=== PATIENT | female | born 1990 | race Caucasian/White ===

== ENCOUNTER 2017-04-13 16:46 | Emergency (ER) | payer MEDICAID ==
--- NOTE | 2017-04-13 18:04 | UC ---
Complaint Female HPI - HPI Summary HPI Summary: period is late and is concerned she may be - History Of Current Complaint Chief Complaint: UCGU Stated Complaint: PRIVATE ISSUE Time Seen by Provider: 04/13/17 17:55 Hx Obtained From: Patient Hx Last Menstrual Period: 01/2017 ?: Yes Timing: Constant Severity Initially: Mild Severity Currently: Mild Associated Signs And Symptoms: Positive: Negative - Allergies/Home Medications Allergies/Adverse Reactions: Allergies Allergy/AdvReac Type Severity Reaction Status Date / Time No Known Allergies Allergy Verified 04/13/17 18:08 Home Medications: Home Medications Gabapentin CAP(*) [Neurontin 100 mg CAP(*)] 100 mg PO DAILY 04/13/17 [History Confirmed 04/13/17] PMH/Surg Hx/FS Hx/Imm Hx Previously Healthy: Yes Psychological History: Depression - Surgical History Surgical History: Yes Surgery Procedure, Year, and Place: c sections - Family History Known Family History: Positive: Diabetes - Social History Occupation: Employed Full-time, Student Lives: With Family Alcohol Use: None Substance Use Type: None Substance Use Comment - Amount & Last Used: 1x/wk Smoking Status (MU): Former Smoker - Immunization History Most Recent Influenza Vaccination: 2014 Most Recent Tetanus Shot: 2016 Most Recent Pneumonia Vaccination: never Review of Systems Constitutional: Negative Skin: Negative Eyes: Negative ENT: Negative Respiratory: Negative Cardiovascular: Negative Gastrointestinal: Negative Genitourinary: Negative Motor: Negative Neurovascular: Negative Musculoskeletal: Negative Neurological: Negative Psychological: Negative Is Patient Immunocompromised?: No All Other Systems Reviewed And Are Negative: Yes Physical Exam Triage Information Reviewed: Yes Appearance: Well-Appearing, No Pain Distress, Well-Nourished Vital Signs Reviewed: Yes Eye Exam: Normal Eyes: Positive: Conjunctiva Clear ENT Exam: Normal ENT: Positive: Normal ENT inspection, Hearing grossly normal. Negative: Trismus , Muffled voice, Hoarse voice, Sinus tenderness Dental Exam: Normal Neck exam: Normal Neck: Positive: Supple, Nontender Respiratory Exam: Normal Respiratory: Positive: Chest non-tender, No respiratory distress, No accessory muscle use Cardiovascular Exam: Normal Cardiovascular: Positive: RRR, Pulses Normal, Brisk Capillary Refill Musculoskeletal Exam: Normal Musculoskeletal: Positive: Strength Intact, ROM Intact, No Edema Neurological Exam: Normal Neurological: Positive: Alert, Muscle Tone Normal Psychological Exam: Normal Skin Exam: Normal Diagnostics - Laboratory Diagnostic Studies Completed/Ordered: u preg (+), Trace Leuks Complaint Female Dx - Course Course Of Treatment: Follow with Ob-nurse obgyn, Vits, avoid cigarettes and alchol - Differential Dx/Diagnosis Provider Diagnoses: Discharge - Discharge Plan Condition: Stable Disposition: HOME Patient Education Materials: (ED) Forms: *Gen. Provider Communication Referrals: Armen Rodriguez MD [Primary Care Provider] - As Soon As Possible
[2017-04-13 18:08] VITALS: BP 120/65
== END 2017-04-13 18:30 | disposition home or self-care (01) ==
LOC: UCEAST 16:46
DX: Z32.01 Encounter for pregnancy test, result positive (principal); Z87.891 Personal history of nicotine dependence
CPT/HCPCS: 81003; 81025; 87086; 99211; G0463

== ENCOUNTER 2017-10-07 15:15 | Emergency (ER) | payer OTHER ==
--- NOTE | 2017-10-07 16:33 | ED ---
Lower Extremity - HPI Summary HPI Summary: 27 female 35 weeks presents with bilateral leg pain for past couple days. She states left is worst than right. She states may be muscular thing as pain is intermittent and worst when flexes ankle. sometimes radiates from foot to posterior knee mostly on left. She denies any edema. no chest pain or SOB. no rash. no personal history of DVT but has fam hx. is not a smoker. no recent travel. - History of Current Complaint Chief Complaint: EDExtremityLower Stated Complaint: LEG PAIN Time Seen by Provider: 10/07/17 16:15 Hx Last Menstrual Period: 01/2017 Pain Intensity: 4 - Allergies/Home Medications Allergies/Adverse Reactions: Allergies Allergy/AdvReac Type Severity Reaction Status Date / Time No Known Allergies Allergy Verified 10/07/17 15:21 PMH/Surg Hx/FS Hx/Imm Hx Endocrine/Hematology History: Denies: Hx Diabetes, Hx Thyroid Disease Cardiovascular History: Denies: Hx Hypertension Respiratory History: Denies: Hx Asthma, Hx Chronic Obstructive Pulmonary Disease (COPD) GI History: Denies: Hx Ulcer Psychiatric History: Reports: Hx Depression - currently takes Zoloft daily - Surgical History Surgery Procedure, Year, and Place: c sections Infectious Disease History: No Infectious Disease History: Denies: Hx Hepatitis, Hx Human Immunodeficiency Virus (HIV), History Other Infectious Disease, Traveled Outside the [place] in Last 30 Days - Family History Known Family History: Positive: Diabetes, Blood Disorder - Social History Alcohol Use: None Substance Use Type: Reports: None Substance Use Comment - Amount & Last Used: 1x/wk Smoking Status (MU): Former Smoker Review of Systems Negative: Fever Negative: Chest Pain Negative: Shortness Of Breath Positive: Myalgia - bilateral leg All Other Systems Reviewed And Are Negative: Yes Physical Exam Triage Information Reviewed: Yes Vital Signs On Initial Exam: Initial Vitals Temp Pulse Resp BP Pulse Ox 97.5 F 92 15 118/68 99 10/07/17 15:18 10/07/17 15:18 10/07/17 15:18 10/07/17 15:18 10/07/17 15:18 Vital Signs Reviewed: Yes Appearance: Positive: Well-Appearing Skin: Positive: Warm, Dry Head/Face: Positive: Normal Head/Face Inspection Eyes: Positive: Normal, Conjunctiva Clear ENT: Positive: Pharynx normal Respiratory/Lung Sounds: Positive: Clear to Auscultation, Breath Sounds Present Cardiovascular: Positive: Normal, RRR Musculoskeletal: Positive: Strength/ROM Intact - legs, Other - good pulses, nontender calf. Negative: Kana Sign Left, Kana Sign Right, Edema Left, Edema Right Neurological: Positive: Normal Psychiatric: Positive: Normal Diagnostics - Vital Signs Vital Signs Temp Pulse Resp BP Pulse Ox 10/07/17 15:18 97.5 F 92 15 118/68 99 - Laboratory Lab Statement: Any lab studies that have been ordered have been reviewed, and results considered in the medical decision making process. - Ultrasound No standard instances Ultrasound Interpretation: No Acute Changes Ultrasound Interpretation Completed By: Radiologist Lower Extremity Course/Dx - Course Course Of Treatment: 27 female 35 weeks presents with bilateral leg pain for past couple days. She states left is worst than right. She states may be muscular thing as pain is intermittent and worst when flexes ankle. sometimes radiates from foot to posterior knee mostly on left. She denies any edema. no chest pain or SOB. no rash. no personal history of DVT but has fam hx. is not a smoker. no recent travel. On exam nontender legs. Neurovascular intact. No edema noted. Ultrasound negative. Explained likely muscular. Told to put ice and heat, take tyenlol. Patient understands and agrees with plan. - Diagnoses Differential Diagnosis/HQI/PQRI: Positive: DVT, Sprain, Strain Provider Diagnoses: Leg pain Discharge - Sign-Out/Discharge Documenting (check all that apply): Patient Departure - Discharge Plan Condition: Good Disposition: HOME Patient Education Materials: Leg Pain (ED) Referrals: Armen Rodriguez MD [Primary Care Provider] - Additional Instructions: Take Tylenol every 6 hours as needed for pain Apply ice/heat Follow up with ob as needed Return to ED if develop any new or worsening symptoms - Billing Disposition and Condition Condition: GOOD Disposition: Home
--- NOTE | 2017-10-07 16:40 | RAD ---
INDICATION: Pain and swelling. COMPARISON: None TECHNIQUE: Duplex interrogation of the both lower extremities was performed. FINDINGS: Deep veins: The common femoral, great saphenous, profunda femoris, proximal, mid, and distal deep femoral, popliteal, posterior tibial, and peroneal veins are patent. There is normal compressibility, augmentation, and phasic flow. Superficial veins: There are no findings of superficial thrombophlebitis. Popliteal fossa:There is no evidence of a popliteal cyst. Soft tissues:There are no soft tissue abnormalities. IMPRESSION: NEGATIVE BILATERAL EXAMINATION. NO EVIDENCE OF DEEP VENOUS THROMBOSIS
[2017-10-07 17:01] VITALS: BP 113/70
== END 2017-10-07 17:00 | disposition home or self-care (01) ==
LOC: ED 15:15
DX: O26.893 Other specified pregnancy related conditions, third trimester (principal); M79.605 Pain in left leg; M79.604 Pain in right leg; Z3A.35 35 weeks gestation of pregnancy; F32.9 Major depressive disorder, single episode, unspecified; Z87.891 Personal history of nicotine dependence
CPT/HCPCS: 93970; 99282

== ENCOUNTER 2017-11-07 06:01 | Inpatient (IN) | payer OTHER ==
[~2017-11-07 06:01] MED LIST: Buffered Lidocaine 0.9% SYRIN* 5 ML/SYR SYRINGE INTRADERM ONE
[2017-11-07] MEDS ORDERED: Sodium Citrate/Citric Acid* 15 ML UDC PO ONE (06:30)
--- NOTE | 2017-11-07 06:39 | HP ---
General Information - Reason for Visit at term, prior section X 3, gestational diabetes, desires sterilization. - General Information Maternal Age: 27 Grav: 5 Para: 3 SAB: 1 IEA: 0 Estimated Due Date: 11/11/17 Determined By: LMP Gestational Age in Weeks/Days: 39 3/7 Maternal Blood Type and Rh: A Positive - Results this Serology/RPR Result: Non-Reactive Rubella Result: Immune HBsAg Result: Negative HIV Result: Negative GBS Culture Result: Negative Past Medical History Delivery History: Hx C/Section, See Records - Gestational diabetes A1 Pertinent Past Medical History: See Records - Depression/Anxiety Pertinent Past Surgical History: See Records Pertinent Family History: See Records - Antepartal Records Antepartal Records: Reviewed, Complicated by: - Prior X3, Gestational diabetes A1 Review of Systems Constitutional: Comfortable CV Complaint: No Respiratory: Shortness of Breath: No Gastrointestinal: No Nausea/Vomiting, Normal Bowel Movement Genitourinary: No Dysuria, No Bleeding, No Leaking Fluid Musculoskeletal: No Complaint, No Epigastric Pain Neurological: No Headache, No Visual Changes Movement: Normal Exam Allergies/Adverse Reactions: Allergies No Known Allergies Allergy (Verified 10/07/17 15:21) Temp 98.7 BP 120/82 P 72 RR 20 - Measurements Height: 5 ft 4 in Weight: 185 lb Weight in lbs: [phone] Body Mass Index (BMI): 31.7 Pre- Weight: 165 lb Weight Gained This : 20 lbs and 0 ozs - Exam Breast: Breast Exam Deferred CVA: No CVA Tenderness Extremities: No Edema Heart: Normal Rhythm/Heart Sounds HEENT: No Significant Findings Lungs: Clear Bilaterally Rectal: Rectal Exam Deferred Reflexes: DTR 2+ Thyroid: No Thyromegaly - Abdominal Exam Abdomen Exam: Non-Tender, Fundal Height Consistent with Dates - Ultrasound/Biophysical Profile Ultrasound Status: Not Done Targeted Exam Findings See L&D Outpatient Visit Provider Note for Findings: N/A Cervical Exam: Closed Presenting Part: Vertex Membrane Status: Intact Bleeding/Discharge: None EFM Findings - External Monitor Findings Baseline Heart Rate: 140 External Monitor Findings: Accelerations Present Contractions: None Assessment/Plan - Obstetrical Risk Factors Obstetrical Risk Factors: Gestational Diabetes Risk Factors Comment: Prior Section X 3 - Plan Plan: IV Hydration, Antibiotic Prophylaxis, C/S Delivery - Date/Time of Admission Date of Admission: 11/07/17 Time of Admission: 07:00
[2017-11-07] MEDS ORDERED: Phenylephrine INJ* 10 MG/ML 1 ML VIAL (10 MG) ONE (06:54)
[2017-11-07] MEDS ORDERED: Bupivacaine 0.5% SDV PF* 30ML VIAL ONE (06:55)
[2017-11-07] MEDS ORDERED: Sterile Water for Inj* 20 ML ONE (06:55)
[2017-11-07] MEDS ORDERED: Morphine PF AMP (0.5MG/ML)* 5 MG/10 ML AMP ONE (06:58)
[2017-11-07] MEDS ORDERED: ceFOXitin 2 GM IVPREMIX* 2 GM/50 ML BAG IVPB ONE (07:00)
[2017-11-07] MEDS ORDERED: fentaNYL* 50 MCG/ML 2 ML VIAL (100 MCG VIAL) ONE (07:01)
[2017-11-07] MEDS ORDERED: Sodium Citrate/Citric Acid* 15 ML UDC ONE (07:18)
[2017-11-07] MEDS ORDERED: ceFOXitin 2 GM IVPREMIX* 2 GM/50 ML BAG ONE (07:26)
[2017-11-07] MEDS ORDERED: Ondansetron INJ* 2 MG/ML VIAL ONE (07:58)
[2017-11-07] MEDS ORDERED: Oxytocin in LR* 20 UNITS/1,000 ML BAG IVPB ONE (08:13)
[2017-11-07] MEDS ORDERED: Glycopyrrolate IV* 0.2 MG/ML 1 ML VIAL ONE (08:23)
[2017-11-07] MEDS ORDERED: Naloxone* 0.4 MG/ML 1 ML VIAL IV PRN (08:51)
[2017-11-07] MEDS ORDERED: Acetaminophen TAB* 325 MG PO PRN ×2 (08:51→09:30)
[2017-11-07] MEDS ORDERED: Metoclopramide IV* 5 MG/ML 2 ML VIAL IV PRN (08:51)
[2017-11-07] MEDS ORDERED: oxyCODONE/Acetamin 5/325 MG* TAB PO PRN ×2 (08:51→09:30)
[2017-11-07] MEDS ORDERED: Ketorolac INJ* 30 MG/ML 1 ML VIAL IV PRN (08:51)
[2017-11-07] MEDS ORDERED: Ondansetron INJ* 2 MG/ML VIAL IV PRN (08:51)
[2017-11-07] MEDS ORDERED: oxyCODONE TAB* 5 MG TAB PO PRN (08:51)
[2017-11-07] MEDS ORDERED: DiMENhydriNATE IV* 50 MG/ML VIAL IV PUSH PRN (08:51)
[2017-11-07] MEDS ORDERED: Witch Hazel PAD* JAR TOPICAL PRN (09:30)
[2017-11-07] MEDS ORDERED: Glycerin ADULT SUPP PR PRN (09:30)
[2017-11-07] MEDS ORDERED: Dibucaine 1% 28.35 GM TUBE PR PRN (09:30)
[2017-11-07] MEDS ORDERED: Zolpidem TAB* 5 MG PO PRN (09:30)
[2017-11-07] MEDS: Simethicone TAB* 80 MG TAB.CHEW PO SCH ×3 (18:00→21:20)
[2017-11-07] MEDS: Ibuprofen TAB* 600 MG PO PRN (18:00)
[2017-11-07] MEDS: Docusate CAP* 100 MG PO SCH ×2 (18:04→21:20)
[2017-11-08] MEDS: Ibuprofen TAB* 600 MG PO PRN ×3 (00:58→15:15)
--- NOTE | 2017-11-08 03:37 | OP ---
DATE OF OPERATION: 11/07/17 - ROOM #115 DATE OF : 89 SURGEON: Armen Rodriguez MD HAT STEAMER: Dr. Robles ANESTHESIA: Spinal. PRE-OP DIAGNOSIS: at 39 plus weeks; prior section x3; desires sterilization; and gestational diabetes diet controlled. POST-OP DIAGNOSIS: at 39 plus weeks; prior section x3; desires sterilization; and gestational diabetes diet controlled. OPERATIVE PROCEDURE: Repeat low-transverse section and bilateral fimbriectomy tubal ligation. ESTIMATED BLOOD LOSS: 600 cc. SPECIMENS SENT TO PATHOLOGY: Cord blood and bilateral tubal fimbriae. FLUIDS: She received 1500 cc of IV crystalloid fluids. URINE OUTPUT: Clear. FINDINGS: Delivery of a male infant weighing 7 pounds 15 ounces with Apgars of 9 and 9. The placenta was grossly intact and a 3-vessel cord noted. The uterus , adnexa, bowel, and bladder were within normal limits. There were no complications. DESCRIPTION OF PROCEDURE: The patient was taken to the operating room, where she was identified. She was placed on the operating table, where a spinal anesthetic was obtained without difficulty. She was then placed in the supine position with a leftward tilt, prepped and draped in the normal sterile fashion. A Pfannenstiel skin incision was then made with a knife and carried through to the underlying layer of fascia. The fascia was then nicked in the midline and extended laterally with curved Walker scissors. The fascia was then grasped superiorly and inferiorly with Emilie clamps, dissected off sharply from the rectus muscle. The rectus muscle was in the midline bluntly. The peritoneum was identified, grasped with pickups and entered sharply with Metzenbaum scissors. The peritoneum was then extended superiorly and inferiorly with a Metzenbaum scissors. A bladder blade was inserted into the patient's abdomen and a bladder flap was created using Metzenbaum scissors over which the bladder blade was then reinserted. A low transverse uterine incision was made with a knife, extended laterally with bandage scissors. The amniotic sac was ruptured and the fluid was noted to be clear. The 's head was then grasped and delivered atraumatically. The rest of the 's body was then delivered. The cord was clamped and cut and the was handed off to the awaiting water meter reader. Cord bloods were obtained. The placenta was removed manually. The uterus was then exteriorized and cleared of all clots and debris using moist laparotomy sponges. The uterine incision was then closed using 0 Polysorb suture in a running locked fashion with a second imbricating layer of 0 Polysorb suture with good hemostasis noted. The abdomen was then irrigated with normal saline and the irrigation fluid was suctioned. The uterine incision was noted to be hemostatic. All sponges were removed from the patient's abdomen as well as instruments. Prior to inserting the uterus into the patient's abdomen, a bilateral fimbriectomy was performed in the usual fashion and portions of the right and left fimbriae were sent to pathology. Again, the uterus was placed into the patient's abdomen and the incision was noted to be hemostatic. All the sponges were removed from the patient's abdomen and instruments. At this point, the peritoneum was then closed using 3- 0 Polysorb suture in a running fashion. The fascia was closed using 0 Polysorb suture in a running fashion, and the skin was closed with a 4-0 Monocryl in a subcuticular stitch. The patient tolerated the procedure well. Sponge, lap, and needle counts were correct x2. She was then transferred to the recovery room area in stable condition. [id number]/[facility] #: [id number]
[2017-11-08] MEDS: oxyCODONE/Acetamin 5/325 MG* TAB PO PRN ×3 (06:56→17:07)
[2017-11-08 06:58] LABS: ABS Basophils 0 10^3/ul (0-0.2); ABS Eosinophils 0.2 10^3/ul (0-0.6); ABS Lymphocytes 1.8 10^3/ul (1.0-4.8); ABS Monocytes 0.9 10^3/ul (0-0.8); ABS Neutrophils 7.1 10^3/ul (1.5-7.7); ABS Nucleated RBC 0 10^3/ul; Eosinophil % 2.1 % (0-6); Hematocrit 31 % (35-47); Hemoglobin 10.7 g/dl (12.0-16.0); Lymphocyte % 17.8 % (25-47); Mean Corpuscular HGB Conc 34 g/dl (31-36); Mean Corpuscular Hemoglobin 30 pg (27-31); Mean Corpuscular Volume 86 fL (80-97); Mean Platelet Volume 8.9 um3 (7.4-10.4); Nucleated Red Blood Cells % 0; Platelet Count 196 10^3/ul (150-450); Red Blood Count 3.64 10^6/ul (4.00-5.40); Red Cell Distribution Width 14 % (10.5-15)
[2017-11-08] MEDS: Docusate CAP* 100 MG PO SCH ×3 (08:12→21:09)
[2017-11-08] MEDS: Simethicone TAB* 80 MG TAB.CHEW PO SCH ×3 (08:12→19:20)
[2017-11-08] MEDS ORDERED: Ferrous Gluconate TAB* 324 MG TAB PO SCH (09:00)
[2017-11-09] MEDS: Simethicone TAB* 80 MG TAB.CHEW PO SCH ×4 (00:36→19:31)
[2017-11-09] MEDS: Ibuprofen TAB* 600 MG PO PRN ×4 (00:36→19:31)
[2017-11-09] MEDS: Docusate CAP* 100 MG PO SCH ×3 (07:59→19:31)
[2017-11-09] MEDS: oxyCODONE/Acetamin 5/325 MG* TAB PO PRN ×2 (12:36→19:32)
[2017-11-10] MEDS: Ibuprofen TAB* 600 MG PO PRN ×3 (01:36→13:58)
[2017-11-10 08:22] VITALS: BP 121/65
[2017-11-10] MEDS: Simethicone TAB* 80 MG TAB.CHEW PO SCH ×2 (08:43→12:23)
[2017-11-10] MEDS: Docusate CAP* 100 MG PO SCH ×2 (08:43→13:58)
[2017-11-10 13:30] LABS: Urine Appearance Clear; Urine Blood 2+ (Negative); Urine Color Yellow; Urine Ketones Negative (Negative); Urine Protein Negative (Negative); Urine Red Blood Cell 2+(6-10/hpf) (Absent); Urine Specific Gravity 1.015 (1.010-1.030); Urine Urobilinogen Negative (Negative); Urine White Blood Cell Trace(0-5/hpf) (Absent)
== END 2017-11-10 14:17 | disposition home or self-care (01) | DRG 540 ==
LOC: MCHOB 06:01 → EDSTATUS 07:45
PROVIDERS: ADMIT Obstetrics & Gynecology; ATTEND Obstetrics & Gynecology
PROC: 10D00Z1 Extraction of Products of Conception, Low, Open Approach (ICD-10-PCS; 2017-11-07)
PROC: 4A1HX4Z Monitoring of Products of Conception, Cardiac Electrical Activity, External Approach (ICD-10-PCS; 2017-11-07)
PROC: 0UB70ZZ Excision of Bilateral Fallopian Tubes, Open Approach (ICD-10-PCS; principal; 2017-11-07 07:45)
DX: O34.211 Maternal care for low transverse scar from previous cesarean delivery (principal); O24.420 Gestational diabetes mellitus in childbirth, diet controlled; O90.81 Anemia of the puerperium; Z3A.39 39 weeks gestation of pregnancy; Z37.0 Single live birth; Z30.2 Encounter for sterilization
CPT/HCPCS: 36415; 81003; 81015; 85025; 87086; 88302; A9270-GY; J0694; J1240; J1885; J2405; J3010

== ENCOUNTER 2019-04-08 10:18 | Emergency (ER) | payer OTHER ==
[2019-04-08 11:04] LABS: ABS Basophils 0.1 10^3/ul (0-0.2); ABS Eosinophils 0.2 10^3/ul (0-0.6); ABS Lymphocytes 2.2 10^3/ul (1.0-4.8); ABS Monocytes 0.8 10^3/ul (0-0.8); ABS Neutrophils 5.5 10^3/ul (1.5-7.7); Eosinophil % 1.9 %; Hematocrit 41 % (35-47); Hemoglobin 14.1 g/dL (12.0-16.0); Lymphocyte % 25.5 %; Mean Corpuscular HGB Conc 34 g/dL (31-36); Mean Corpuscular Hemoglobin 31 pg (27-31); Mean Corpuscular Volume 89 fL (80-97); Mean Platelet Volume 7.6 fL (7.4-10.4); Nucleated Red Blood Cells % 0.1; Platelet Count 366 10^3/uL (150-450); Red Blood Count 4.61 10^6 /uL (3.70-4.87); Red Cell Distribution Width 13 % (10-15); White Blood Count 8.7 10^3/uL (3.5-10.8)
[2019-04-08 11:10] LABS: Urine Appearance Clear; Urine Bilirubin Negative (Negative); Urine Blood Negative (Negative); Urine Color Yellow; Urine Glucose Negative (Negative); Urine Ketones Negative (Negative); Urine Nitrite Negative (Negative); Urine Protein Negative (Negative); Urine Specific Gravity 1.005 (1.010-1.030); Urine Urobilinogen Negative (Negative)
[2019-04-08 11:20] LABS: ALT 17 U/L (7-52); AST 12 U/L (13-39); Albumin 4.3 g/dL (3.2-5.2); Albumin/Globulin Ratio 1.5 (1-3); Alkaline Phosphatase 68 U/L (34-104); Anion Gap 4 mmol/L (2-11); BUN/Creatinine Ratio 12.7 (8-20); Blood Urea Nitrogen 9 mg/dL (6-24); CO2 Carbon Dioxide 27 mmol/L (22-32); Calcium 9.2 mg/dL (8.6-10.3); Chloride 107 mmol/L (101-111); EGFR African American 118.6 (>60); Globulin 2.9 g/dL (2-4); Glucose 79 mg/dL (70-100); Potassium 3.7 mmol/L (3.5-5.0); Sodium 138 mmol/L (135-145); Total Protein 7.2 g/dL (6.4-8.9)
[2019-04-08 11:27] LABS: HCG Pregnancy < 0.60 mIU/mL
[2019-04-08 11:47] LABS: Acetaminophen < 15 mcg/mL; Alcohol < 10 mg/dL (<10); Salicylate < 2.50 mg/dL (<30)
[2019-04-08 11:49] LABS: Urine Benzodiazepine Screen Presumptive Positive (None Detect); Urine Opiates Screen None Detected (None Detect)
[2019-04-08 11:49] LABS: TSH (Thyroid Stimulating Horm) 1.39 mcIU/mL (0.34-5.60)
--- NOTE | 2019-04-08 17:18 | ED ---
Psychiatric Complaint - HPI Summary HPI Summary: This patient is a 29-year-old female presenting to the ED with feelings of suicidal ideation. She also endorses drug use as soon as last evening. She endorses MDMA. Denies any symptoms. States she feels "numb." She states she feels this way when she has her suicidal thoughts. Although her suicidal thoughts have been present for several years, worse in the last 6 months, she states she has been wanting to act on these thoughts with several weeks. She denies any extra recent stressors. She is unwilling to talk much with provider. States she is supposed to be taking Zoloft, but hasn't. States she wants to hurt herself now, appears angry at triage. Patient states she wanted to go to the PCP office for a physical she could go to rehabilitation for her drug use. They told her come to [facility] as she had suicidal thoughts. - History Of Current Complaint Chief Complaint: EDPsychosocial Time Seen by Provider: 04/08/19 10:26 Hx Obtained From: Patient Hx Last Menstrual Period: 01/2017 ?: No Onset/Duration: Sudden Onset Timing: Constant Severity Initially: Moderate Severity Currently: Moderate Character: Depressed, Anxious, Angry, Frustrated Aggravating Factor(s): Recent Stress, Medication Non-compliance, Alcohol Use, Drug Use Alleviating Factor(s): Nothing Associated Signs And Symptoms: Positive: Hostile, Confused, Social Withdrawal, Social Isolation Has Suicidal: Reports: Thoughts, With A Plan - various Ingestion History: Type/Name Of Drug - MDMA, Amount Ingested - unknown, Approximate Time Of Ingestion - bath mixer hours - Risk Factor(s) Completed Suicide Risk Factors: Negative - Allergies/Home Medications Allergies/Adverse Reactions: Allergies Allergy/AdvReac Type Severity Reaction Status Date / Time No Known Allergies Allergy Verified 04/08/19 10:24 PMH/Surg Hx/FS Hx/Imm Hx Previously Healthy: Yes Endocrine/Hematology History: Denies: Hx Diabetes, Hx Thyroid Disease Cardiovascular History: Denies: Hx Hypertension Respiratory History: Denies: Hx Asthma, Hx Chronic Obstructive Pulmonary Disease (COPD) GI History: Denies: Hx Ulcer Psychiatric History: Reports: Hx Anxiety, Hx Eating Disorder - bulemia, Hx Depression, Hx Suicide Attempt - taken pills Denies: Hx Post Traumatic Stress Disorder, Hx Schizophrenia - Surgical History Surgery Procedure, Year, and Place: c sections - Immunization History Hx Pertussis Vaccination: No Immunizations Up to Date: Yes Infectious Disease History: No Infectious Disease History: Denies: Hx Hepatitis, Hx Human Immunodeficiency Virus (HIV), History Other Infectious Disease, Traveled Outside the [place] in Last 30 Days - Family History Known Family History: Positive: Diabetes, Blood Disorder - Social History Occupation: Unemployed Lives: Alone Alcohol Use: Occasionally Alcohol Amount: bottle and a half of wine Hx Substance Use: No Substance Use Type: Reports: Other Substance Use Comment - Amount & Last Used: once a week Hx Tobacco Use: Yes Smoking Status (MU): Light Every Day Tobacco Smoker Review of Systems Negative: Fever, Chills, Fatigue, Skin Diaphoresis Negative: Palpitations, Chest Pain Negative: Shortness Of Breath, Cough Genitourinary: Negative Positive: no symptoms reported, see HPI Negative: Arthralgia, Myalgia Positive: Anxious, Depressed All Other Systems Reviewed And Are Negative: Yes Physical Exam Triage Information Reviewed: Yes Vital Signs On Initial Exam: Initial Vitals Temp Pulse Resp BP Pulse Ox 98.7 F 100 19 136/82 100 04/08/19 10:19 04/08/19 10:19 04/08/19 10:19 04/08/19 10:19 04/08/19 10:19 Vital Signs Reviewed: Yes Appearance: Positive: Well-Appearing, Well-Nourished Skin: Positive: Warm, Skin Color Reflects Adequate Perfusion Head/Face: Positive: Normal Head/Face Inspection Eyes: Positive: EOMI, SIDRA, Conjunctiva Clear Neck: Positive: Supple, No Lymphadenopathy Respiratory/Lung Sounds: Positive: Clear to Auscultation, Breath Sounds Present Cardiovascular: Positive: RRR, Pulses are Symmetrical in both Upper and Lower Extremities Musculoskeletal: Positive: Normal, Strength/ROM Intact Neurological: Positive: Speech Normal Psychiatric: Positive: Normal, Affect/Mood Appropriate AVPU Assessment: Alert Procedures - Sedation Patient Received Moderate/Deep Sedation with Procedure: No Diagnostics - Vital Signs Vital Signs Temp Pulse Resp BP Pulse Ox 04/08/19 10:19 98.7 F 100 19 136/82 100 - Laboratory Lab Results: Lab Results 04/08/19 04/08/19 04/08/19 Range/Units 10:55 10:55 10:56 WBC 8.7 (3.5-10.8) 10^3/uL RBC 4.61 (3.70-4.87) 10^6 /uL Hgb 14.1 (12.0-16.0) g/dL Hct 41 (35-47) % MCV 89 (80-97) fL MCH 31 (27-31) pg MCHC 34 (31-36) g/dL RDW 13 (10-15) % Plt Count 366 (150-450) 10^3/uL MPV 7.6 (7.4-10.4) fL Neut % (Auto) 62.6 % Lymph % (Auto) 25.5 % [place] % (Auto) 9.3 % Eos % (Auto) 1.9 % Baso % (Auto) 0.7 % Absolute Neuts (auto) 5.5 (1.5-7.7) 10^3/ul Absolute Lymphs (auto) 2.2 (1.0-4.8) 10^3/ul Absolute Monos (auto) 0.8 (0-0.8) 10^3/ul Absolute Eos (auto) 0.2 (0-0.6) 10^3/ul Absolute Basos (auto) 0.1 (0-0.2) 10^3/ul Absolute Nucleated RBC 0.0 10^3/ul Nucleated RBC % 0.1 Sodium 138 (135-145) mmol/L Potassium 3.7 (3.5-5.0) mmol/L Chloride 107 (101-111) mmol/L Carbon Dioxide 27 (22-32) mmol/L Anion Gap 4 (2-11) mmol/L BUN 9 (6-24) mg/dL Creatinine 0.71 (0.51-0.95) mg/dL Est GFR ( Amer) 118.6 (>60) Est GFR (Non-Af Amer) 98.0 (>60) BUN/Creatinine Ratio 12.7 (8-20) Glucose 79 (70-100) mg/dL Calcium 9.2 (8.6-10.3) mg/dL Total Bilirubin 0.40 (0.2-1.0) mg/dL AST 12 L (13-39) U/L ALT 17 (7-52) U/L Alkaline Phosphatase 68 (34-104) U/L Total Protein 7.2 (6.4-8.9) g/dL Albumin 4.3 (3.2-5.2) g/dL Globulin 2.9 (2-4) g/dL Albumin/Globulin Ratio 1.5 (1-3) TSH 1.39 (0.34-5.60) mcIU/mL Beta HCG, Quant < 0.60 mIU/mL Urine Color Yellow Urine Appearance Clear Urine pH 7.0 (5-9) Ur Specific [place] 1.005 L (1.010-1.030) Urine Protein Negative (Negative) Urine Ketones Negative (Negative) Urine Blood Negative (Negative) Urine Nitrate Negative (Negative) Urine Bilirubin Negative (Negative) Urine Urobilinogen Negative (Negative) Ur Leukocyte Esterase Negative (Negative) Urine Glucose Negative (Negative) Salicylates < 2.50 (<30) mg/dL Urine Opiates Screen (None Detect) Acetaminophen < 15 mcg/mL Ur Barbiturates Screen (None Detect) Ur Phencyclidine Scrn (None Detect) Ur Amphetamines Screen (None Detect) U Benzodiazepines Scrn (None Detect) Urine Cocaine Screen (None Detect) U Cannabinoids Screen (None Detect) Serum Alcohol < 10 (<10) mg/dL 04/08/19 Range/Units 10:56 WBC (3.5-10.8) 10^3/uL RBC (3.70-4.87) 10^6 /uL Hgb (12.0-16.0) g/dL Hct (35-47) % MCV (80-97) fL MCH (27-31) pg MCHC (31-36) g/dL RDW (10-15) % Plt Count (150-450) 10^3/uL MPV (7.4-10.4) fL Neut % (Auto) % Lymph % (Auto) % [place] % (Auto) % Eos % (Auto) % Baso % (Auto) % Absolute Neuts (auto) (1.5-7.7) 10^3/ul Absolute Lymphs (auto) (1.0-4.8) 10^3/ul Absolute Monos (auto) (0-0.8) 10^3/ul Absolute Eos (auto) (0-0.6) 10^3/ul Absolute Basos (auto) (0-0.2) 10^3/ul Absolute Nucleated RBC 10^3/ul Nucleated RBC % Sodium (135-145) mmol/L Potassium (3.5-5.0) mmol/L Chloride (101-111) mmol/L Carbon Dioxide (22-32) mmol/L Anion Gap (2-11) mmol/L BUN (6-24) mg/dL Creatinine (0.51-0.95) mg/dL Est GFR ( Amer) (>60) Est GFR (Non-Af Amer) (>60) BUN/Creatinine Ratio (8-20) Glucose (70-100) mg/dL Calcium (8.6-10.3) mg/dL Total Bilirubin (0.2-1.0) mg/dL AST (13-39) U/L ALT (7-52) U/L Alkaline Phosphatase (34-104) U/L Total Protein (6.4-8.9) g/dL Albumin (3.2-5.2) g/dL Globulin (2-4) g/dL Albumin/Globulin Ratio (1-3) TSH (0.34-5.60) mcIU/mL Beta HCG, Quant mIU/mL Urine Color Urine Appearance Urine pH (5-9) Ur Specific [place] (1.010-1.030) Urine Protein (Negative) Urine Ketones (Negative) Urine Blood (Negative) Urine Nitrate (Negative) Urine Bilirubin (Negative) Urine Urobilinogen (Negative) Ur Leukocyte Esterase (Negative) Urine Glucose (Negative) Salicylates (<30) mg/dL Urine Opiates Screen None detected (None Detect) Acetaminophen mcg/mL Ur Barbiturates Screen None detected (None Detect) Ur Phencyclidine Scrn None detected (None Detect) Ur Amphetamines Screen None detected (None Detect) U Benzodiazepines Scrn Presumptive positive A (None Detect) Urine Cocaine Screen None detected (None Detect) U Cannabinoids Screen Presumptive positive A (None Detect) Serum Alcohol (<10) mg/dL Result Diagrams: 04/08/19 10:55 04/08/19 10:55 Lab Statement: Any lab studies that have been ordered have been reviewed, and results considered in the medical decision making process. Course/Dx - Course Course Of Treatment: Patient appears well. Nontoxic appearing. Afebrile. Other vital signs stable. No abdominal tenderness throughout. Lungs CTA, RRR. EOMI/PERRLA. Patient does appear somewhat fatigued and is unwilling to speak with provider at length. Patient is cleared for mental health. Signed out to Benjamin Aguirre PA-C pending disposition. - Differential Dx/Clinical Impression Differential Diagnosis/HQI/PQRI: Positive: Acute Psychosis, Anxiety, Suicide Attempt, Suicidal Ideation, Suicidal Gesture Provider Diagnosis: Suicidal ideation Discharge ED - Sign-Out/Discharge Documenting (check all that apply): Sign-Out Patient Signing out patient TO: Benjamin Aguirre - Discharge Plan Condition: Fair Referrals: No Primary Care Phys,NOPCP [Primary Care Provider] - - Billing Disposition and Condition Condition: FAIR - Attestation Statements Provider Attestation: I was available for consult. This patient was seen by the [facility]. The patient was not presented to, seen by, or examined by me. -Jordon
[2019-04-08] MEDS ORDERED: Nicotine PATCH 21 MG/24 HR* PATCH TRANSDERM ONE (19:47)
[2019-04-08] MEDS ORDERED: hydrOXYzine HCL TAB* 25 MG PO ONE (19:47)
[2019-04-08] MEDS ORDERED: diPHENhydraMINE PO* 50 MG PO ONE (22:50)
--- NOTE | 2019-04-09 06:45 | ED ---
Progress - Progress Note Progress Note: The patient is a sign-out from ALEJANDRA Box, to Dr. Benjamin Fregoso MD, at change of shift at 0230 on 04/09/2019, pending [facility] hold. Patient awaiting transfer to [facility] accepted by Dr. Laird. The patient is a sign-out from Dr. Benjamin Fregoso MD, to Dr. Raúl Ortiz DO, at change of shift at 0700 on 04/09/2019, pending MHU hold. Course/Dx - Course Course Of Treatment: The patient is a sign-out from ALEJANDRA Box, to Dr. Benjamin Fregoso MD, at change of shift at 0230 on 04/09/2019, pending MHU hold. Patient awaiting transfer to [facility] accepted by Dr. Laird. The patient is a sign-out from Dr. Benjamin Fregoso MD, to Dr. Raúl Ortiz DO, at change of shift at 0700 on 04/09/2019, pending MHU hold. - Diagnoses Provider Diagnoses: Suicidal ideation - Provider Notifications Discussed Care Of Patient With: S[facility] - psych [facility] Instructed by Provider To: Other - Dr. Laird accepts patient for transfer to [facility] for psych care. Discharge ED - Sign-Out/Discharge Documenting (check all that apply): Sign-Out Patient, Receiving Sign-Out Signing out patient TO: Charles Ortiz - Patient is a sign-out to Dr. Raúl Ortiz DO, at 0700 on 04/09/2019, pending MH transfer. Receiving patient FROM: Benjamin Aguirre - Patient is a sign-out from ALEJANDRA Box , at 0230 on 04/09/2019, pending MH transfer. - Discharge Plan Condition: Fair Disposition: PSYCHIATRIC FACILITY-OTHER Referrals: No Primary Care Phys,NOPCP [Primary Care Provider] - - Attestation Statements Document Initiated by Scribe: Yes Documenting Scribe: Gladys Parsons Provider For Whom Scribe is Documenting (Include Credential): Dr. Benjamin Fregoso MD Scribe Attestation: Gladys Silverman, georgetteibed for Dr. Benjamin Fregoso MD on 04/09/19 at 0646. Status of Scribe Document: Ready Procedures - Sedation Patient Received Moderate/Deep Sedation with Procedure: No
[2019-04-09] MEDS ORDERED: LORazepam TAB(*) 1 MG PO ONE (06:54)
[2019-04-09 08:31] VITALS: BP 114/70
--- NOTE | 2019-04-09 11:56 | ED ---
Progress - Progress Note Progress Note: Patient is signed out from Dr. Fregoso upon shift change 04/09/2019 07:00 pending transfer disposition. Course/Dx - Course Course Of Treatment: Patient is signed out from Dr. Fregoso upon shift change 07:00 pending transfer disposition. Patient transferred to [facility] at 08:42 per psychiatric sorter pricer. - Diagnoses Provider Diagnoses: Mood disorder - Provider Notifications Instructed by Provider To: Other - Dr. Laird accepts patient for transfer to [facility] for psych care. Discharge ED - Sign-Out/Discharge Documenting (check all that apply): Patient Departure - Discharge Plan Condition: Fair Disposition: PSYCHIATRIC FACILITY-OTHER Referrals: No Primary Care Phys,NOPCP [Primary Care Provider] - - Billing Disposition and Condition Condition: FAIR Disposition: Psychiatric Facility Other - Attestation Statements Document Initiated by Scribe: Yes Documenting Scribe: Elana Newell Provider For Whom Scribe is Documenting (Include Credential): Raúl Ortiz DO Scribe Attestation: Elana Silverman scribed for Raúl Ortiz DO on 04/09/19 at 1208. Scribe Documentation Reviewed: Yes Provider Attestation: The documentation as recorded by the georgetteibElana rosa accurately reflects the service I personally performed and the decisions made by Raúl maciel DO Status of Scribe Document: Viewed
== END 2019-04-09 08:46 ==
LOC: ED 10:18
DX: R45.851 Suicidal ideations (principal); F39 Unspecified mood [affective] disorder; R53.83 Other fatigue; F17.200 Nicotine dependence, unspecified, uncomplicated
CPT/HCPCS: 36415; 80053; 80307; 80320; 80329; 81003; 84443; 84702; 85025; 93005; 99285; A9270-GY; G0480